=== PATIENT | female | born 1965 | race Hispanic/Latino ===

== ENCOUNTER 2020-04-19 11:13 | Outpatient (AMBR) | payer MEDICAID, SELFPAY ==
--- NOTE | 2020-04-19 12:49 | PT.OIERPT ---
PT OP Initial Eval Patient Information Visit Reasons: right shoulder post op Start of Care: 04/19/20 Date of Onset: 03/31/20 Initial Assessment Subjective Pt is 54 yr old taiwanese speaking female s/p R RCR about 3 weeks ago. She reports she is moving the R shoulder using the L hand with pain during the day and night. Pt lives in [place] which is [place] away and would prefer to go to therapy closer to home. Objective R shoulder AROM: NT PROM: FF: 90 deg Abd: 90 deg Erot: 35 deg Strength: NT but estimated to be 3-/5 Incision: healing well Assessment Pt presentation consistent with post op RCR with limited strength, AROM and function. She requires skilled therapy and would like to transfer to a closer facility to her home so she will be discharged after this evaluation. Short Term and Correction Goals Eval and D/C Treatment Plan Eval and D/C Certification Dates: 04/19/20 to 05/20/20 Office Procedures PT Procedures PT Date of Service: 04/19/20 OP PT Eval Mod Complex 30 minutes: Yes
== END 2020-05-10 23:59 | disposition home or self-care (01) ==
PROVIDERS: PCP Orthopaedic Surgery; Referring Provider Orthopaedic Surgery; Visit Provider Orthopaedic Surgery
DX: M25.511 Pain in right shoulder (principal)
CPT/HCPCS: 97162